=== PATIENT | female | born 1980 | race Caucasian/White ===

== ENCOUNTER → 2018-08-23 | Outpatient (CLI) | payer BC ==
--- NOTE | 2018-08-24 07:55 | CT ---
EXAMINATION TYPE: CT chest w con DATE OF EXAM: 08/23/2018 COMPARISON: Chest x-ray August 11, 2018 HISTORY: SOB, RIGHT SIDED CHEST PAIN CT DLP: 165.8 mGycm. Automated Exposure Control for Dose Reduction was Utilized. TECHNIQUE: CT scan of the thorax is performed following with IV Contrast, patient injected with 100 mL of Isovue 300. FINDINGS: LUNGS: The lungs are grossly clear, there is no concerning parenchymal mass or nodule identified. T here is no pleural effusion or pneumothorax seen. The tracheobronchial tree is patent. MEDIASTINUM: There are no greater than 1 cm hilar or mediastinal lymph nodes. No cardiomegaly or pe ricardial effusion is seen. OTHER: There are bilateral subglandular breast implants. Incidental posterior disc herniations effaci ng anterior thecal sac T7-T8 level sagittal image 55. IMPRESSION: No suspicious acute cardiopulmonary process.
== END ==
LOC: RADCTMAIN 16:09
PROVIDERS: ATTEND Internal Medicine Critical Care Medicine
DX: R06.02 Shortness of breath (principal)
CPT/HCPCS: 71260; Q9967

== ENCOUNTER → 2018-10-17 | Outpatient (CLI) | payer BC ==
--- NOTE | 2018-10-17 10:49 | XR ---
EXAMINATION TYPE: XR Hip Complete RT DATE OF EXAM: 10/17/2018 CLINICAL HISTORY: Right hip pain increasing over last several years. TECHNIQUE: AP and frogleg views of the right hip are obtained. COMPARISON: None. FINDINGS: There is no acute fracture/dislocation evident in the right hip. The joint space in the r ight hip appears within normal limits. The overlying soft tissue appears unremarkable. IMPRESSION: Unremarkable study.
== END | disposition home or self-care (01) ==
LOC: RADXRYALE 10:23
PROVIDERS: ATTEND Family Medicine
DX: M25.551 Pain in right hip (principal)
CPT/HCPCS: 73502

== ENCOUNTER → 2022-07-08 | Outpatient (CLI) | payer BC ==
--- NOTE | 2022-07-09 08:25 | MM ---
Reason for Exam: Hx of breast augmentation, asymptomatic. Last mammogram was performed 6 year(s) and 0 month(s) ago. Patient History: Menarche at age 12. First Full-Term at age 21. 2011, Bilateral Implants. Last menstrual period: 07/02/2022 Risk Values: Cris 5 year model risk: 0.6%. NCI Lifetime model risk: 8.0%. Prior Study Comparison: 07/12/2016 Bilateral Screening Mammogram, [facility]. Tissue Density: The breast tissue is heterogeneously dense. This may lower the sensitivity of mammography. Findings: Analyzed By CAD. There is no suspicious group of microcalcifications or new suspicious mass in either breast. Bilateral breast implants remain intact. Overall Assessment: Benign, BI-RAD 2 Management: Screening Mammogram of both breasts in 1 year. A clinical breast exam by your physician is recommended on an annual basis and results should be correlated with mammographic findings. Electronically signed and approved by: Clayton Denney M.D. Radiologis
== END | disposition home or self-care (01) ==
LOC: RADMAMWWP 15:15
PROVIDERS: ATTEND Obstetrics & Gynecology
DX: Z12.31 Encounter for screening mammogram for malignant neoplasm of breast (principal)
CPT/HCPCS: 77063; 77067

== ENCOUNTER → 2023-08-22 | Outpatient (CLI) | payer BC, OTHER ==
--- NOTE | 2023-08-23 10:35 | MR ---
EXAMINATION TYPE: MR shoulder RT wo con DATE OF EXAM: 08/22/2023 COMPARISON: None HISTORY: Right shoulder pain, pain when breathing deep TECHNIQUE: Multiplanar, multisequence imaging of the right shoulder is performed without contrast. FINDINGS: SUPRASPINATUS: Intact. INFRASPINATUS: Intact. SUBSCAPULARIS: Intact. TERES MINOR: Intact. BICEPS: Intact. Increased signal of the intra-articular long head biceps tendon, relating to tendinos is. Normal anchor in the supraglenoid tubercle. Extra-articular portion is appropriately positioned w ithin the bicipital groove. GLENOHUMERAL JOINT: Normal alignment and joint space. Normal cartilage. No effusion. ACROMIOCLAVICULAR JOINT: Mild capsular hypertrophy and dorsal osteophytic spurring. Normal subacromia l space. No effusion. LABRUM: Normal, given the limitations of a non-arthrographic exam. SUBDELTOID BURSA: Normal. No increased fluid. MUSCLES: Normal. BONE MARROW: Normal. OTHER: No additional significant abnormality is appreciated. IMPRESSION: 1. Intact rotator cuff. 2. Long head biceps tendinosis. 3. Mild AC joint osteoarthrosis.
== END | disposition home or self-care (01) ==
LOC: RADMRIMAIN 17:54
PROVIDERS: ATTEND Orthopaedic Surgery
DX: M19.011 Primary osteoarthritis, right shoulder (principal); M67.813 Other specified disorders of tendon, right shoulder; M54.12 Radiculopathy, cervical region

== ENCOUNTER → 2023-11-16 | Outpatient (CLI) | payer BC, OTHER ==
[2023-11-16 11:15] LABS: Basophils # (A) 0.06 X 10*3/uL (0.00-0.10); Basophils % (A) 0.8 %; Eosinophils % (A) 1.3 %; HCT 45.1 % (37.2-46.3); HGB 14.8 g/dL (12.0-15.0); MCH 28.1 pg (27.0-32.0); MCHC 32.8 g/dL (32.0-37.0); MCV 85.7 FL (80.0-97.0); Mean Platelet Volume 10.8 FL (9.5-12.2); Monocytes # (A) 0.41 X 10*3/uL (0.20-1.00); Monocytes % (A) 5.1 %; NRBC Per 100 WBC 0 X 10*3/uL (0.00-0.01); Neutrophils % (A) 62.5 %; Platelet Count 273 X 10*3/uL (140-440); RBC 5.26 X 10*6/uL (4.10-5.20); RDW 12.8 % (11.5-14.5); WBC 7.99 X 10*3/uL (4.50-10.00)
[2023-11-16 12:29] LABS: ALT 18 U/L (8-44); AST 14 U/L (13-35); Albumin 4.6 g/dL (3.8-4.9); Albumin/Globulin Ratio 1.59 Ratio (1.60-3.17); Alkaline Phosphatase 76 U/L (41-126); BUN/Creat Ratio 18.88 Ratio (12.00-20.00); Blood Urea Nitrogen 15.1 mg/dL (9.0-27.0); Calcium 9.5 mg/dL (8.7-10.3); Carbon Dioxide 24.2 mmol/L (21.6-31.8); Chloride 104 mmol/L (96-109); Chol/HDL Ratio 4.47 Ratio; Globulin 2.9 g/dL (1.6-3.3); Glucose 110 mg/dL (70-110); LDL Cholesterol,Calculated 135.4 mg/dL (0.0-131.0); Sodium 140 mmol/L (135-145); T4, Free (Free Thyroxine) 1.17 ng/dL (0.80-1.80); Total Bilirubin <0.2 mg/dL (0.3-1.2); Total Protein 7.5 g/dL (6.2-8.2)
[2023-11-16 12:45] LABS: Follicle Stimulating Hormone 2.1 mIU/mL; Luteinizing Hormone 4.2 mIU/mL
[2023-11-17 20:49] LABS: Vitamin D, 1, 25-Dihydroxy 50 pg/mL (20 - 79)
[2023-11-18 05:51] LABS: Vit B1(Thiamine) 72 ug/L (38-122)
== END | disposition home or self-care (01) ==
LOC: LABWHC1 07:48
PROVIDERS: ATTEND Internal Medicine
DX: Z00.00 Encounter for general adult medical examination without abnormal findings (principal); N92.6 Irregular menstruation, unspecified; R53.81 Other malaise; Z98.82 Breast implant status
CPT/HCPCS: 36415; 80053; 80061; 82533; 82607; 82652; 82746; 83001; 83002; 84207; 84425; 84439; 84443; 84481; 84591; 85025